=== PATIENT | female | born 1955 | race Caucasian/White ===

== ENCOUNTER → 2017-09-06 07:23 | Outpatient (CLI) | payer BC, SELFPAY ==
--- NOTE | 2017-09-06 07:31 | BI_ITS ---
MAMMOGRAPHY - BILATERAL SCREENING REASON FOR EXAM: Female, 62 years old. Routine annual screening examination. PERTINENT HISTORY: Sisters with breast cancer. TECHNIQUE: Digital bilateral breast gisella (3D mammographic acquisition) in the CC and MLO projections. 2-D mediolateral oblique (MLO) and craniocaudad (CC) views of both breasts were obtained. CAD: Full Field Digital Mammography with Computer Added Detection was performed. COMPARISON: Comparison is made with prior outside examination dated August 31, 2016. FINDINGS: Breast Composition: The breasts are heterogeneously dense, which may obscure small masses. There are no dominant masses or suspicious calcifications. No other significant abnormalities are identified. There has been no significant change since the prior study. BI/SCREENING MAMM (CAD), BILAT IMPRESSION: Stable bilateral screening mammogram. Yearly follow-up mammogram recommended. (A) ASSESSMENT CATEGORY: BIRADS Category 1: Negative. A letter regarding these results will be sent to the patient by the facility within 30 days. Approximately 10% of breast cancers are not detected by mammography. A normal mammogram should not delay biopsy of a clinically suspicious abnormality. [id number] Electronically Signed: Ritesh Long MD at 10:00 EDT Tel [phone], Service support ,
== END ==
PROVIDERS: Visit Provider Obstetrics & Gynecology
DX: Z12.31 Encounter for screening mammogram for malignant neoplasm of breast (principal)
CPT/HCPCS: 77063; 77067

== ENCOUNTER → 2018-09-14 | Outpatient (CLI) | payer BC, SELFPAY ==
--- NOTE | 2018-09-14 07:35 | BI_ITS ---
MAMMOGRAPHY - BILATERAL SCREENING REASON FOR EXAM: Female, 63 years old. Routine annual screening examination. PERTINENT HISTORY: Sisters with breast cancer. TECHNIQUE: Digital bilateral breast deirdre (3D mammographic acquisition) in the CC and MLO projections. 2-D mediolateral oblique (MLO) and craniocaudad (CC) views of both breasts were obtained. CAD: Full Field Digital Mammography with Computer Added Detection was performed. COMPARISON: Comparison is made with prior study dated September 06, 2017 and August 31, 2016. FINDINGS: Breast Composition: The breasts are heterogeneously dense, which may obscure small masses. There are no dominant masses or suspicious calcifications. Stable small bilateral axillary lymph nodes. No other significant abnormalities are identified. There has been no significant change since the prior study. BI/SCREEN MAMM (CAD) W/DEIRDRE BILAT IMPRESSION: Stable bilateral screening mammogram. Yearly follow-up mammogram recommended. (A) ASSESSMENT CATEGORY: BIRADS Category 2: Benign. A letter regarding these results will be sent to the patient by the facility within 30 days. Approximately 10% of breast cancers are not detected by mammography. A normal mammogram should not delay biopsy of a clinically suspicious abnormality. [id number] Electronically Signed: Ritesh Long, at 8:37 EDT , Service support ,
== END | disposition home or self-care (01) ==
LOC: OPBI 07:33
PROVIDERS: Referring Provider Obstetrics & Gynecology; Visit Provider Obstetrics & Gynecology
DX: Z12.31 Encounter for screening mammogram for malignant neoplasm of breast (principal)
CPT/HCPCS: 77063; 77067

== ENCOUNTER → 2019-06-06 09:36 | Outpatient (CLI) | payer BC, SELFPAY ==
[2019-06-06 09:35] VITALS: BMI 29.2
--- NOTE | 2019-06-06 09:37 | RAD_ITS ---
ACR Level 3 findings have been noted. An addendum which confirms receipt of the report will follow. STUDY: X-RAY - LEFT KNEE REASON FOR EXAM: Pain in the proximal left knee, no specific injury. TECHNIQUE: 4 view(s) of the knee. COMPARISON: None. FINDINGS: There is osteopenia. There is a lesion in the distal femoral diaphysis with central calcifications measuring 9.5 cm in length without demonstrated endosteal scalloping. Normal visualized proximal tibia and fibula. Normal proximal tibiofibular articulation. There is moderate joint space narrowing of the medial femorotibial compartment. Normal lateral femorotibial compartment. There is mild joint space narrowing of the patellofemoral articulation. There is a small joint effusion. RAD/Knee 4 or More Views IMPRESSION: Arthrosis of the medial femorotibial and patellofemoral compartments. Small joint effusion. 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 Electronically Signed: Benny Milner MD at 10:25 EST Tel , Service support ,
== END ==
PROVIDERS: Referring Provider Physician Assistant; Visit Provider Physician Assistant
DX: M25.562 Pain in left knee (principal)
CPT/HCPCS: 73564

== ENCOUNTER 2019-07-09 09:00 | Outpatient (RCR) | payer BC, SELFPAY ==
[2019-06-06 09:35] VITALS: BMI 29.2
--- NOTE | 2019-06-13 09:35 | HP.PTEVAL ---
Patient's Visit Information Arabella LEW is a 64 year old F referred to Physical Therapy by TUTU Champagne with a diagnosis of L5S1 RADICULOPATHY AND PATELLAR TENDONITIS. PATELLOFEMORAL PAIN/VMO WEAKNE. Date of Evaluation: 06/13/19 Physical Therapist: Emeli Alston PT, Cert MDT - Visit Plan Frequency: 2-3x /Week Duration: 4-6 Weeks Plan: AQUATIC THERAPY FOR PAIN RELEIF, POSTURE CORRECTION/STRENGTHENING, INSTRUCTION IN APPROPRIATE BODY MECHANICS AND ACTIVITY MODIFICATIONS. DLS STARTING WITH A NEUTRAL SPINE PROGRESSING ROM TOLERATED. ABDI LE ROM, STRETCHING AND STRENGTHENING. HEP INSTRUCTION. 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 Disability: NO. Present symptoms: INTERMITTENT LBP. PAIN TRAVELS DOWN LEFT BUTTOCK TO KNEE. NO RIGHT LE SX'S. LEFT KNEE PAIN. PAIN ALSO TRAVELS DOWN LEFT LEGT TO FOOT. LEFT FOOT GETS TENDER. NO ABDI LE NUMBNESS OR TINGLING. Present since: ABOUT 2 YEARS. Pain Scale: WORST 5/10, LEAST 0/10. Currently: 0/10. Commenced as a result of: AFTER COLONOSCOPY. Symptoms at onset: LEFT KNEE PAIN. Worse: STAIRS, STOOPING, SQUATTING, SOMETIMES WALKING. Better: SITTING, LYING DOWN. Disturbed sleep: NO. Previous history/Previous treatment: CHIROPRACTOR SINCE FEB 2019 - IT HELPED FOR A LITTLE BIT WITH BACK BUT NOT MUCH WITH THE KNEE. DR. WEAVER REFERRED HER TO [facility]TH[facility] ([facility]) AND [facility]TH[facility] REFERRED HER HERE TO PT. PRESCRIBED STROID THAT ENDS TODAY AND THAT HAS HELPED HER BACK AND KNEE PAIN. Coughing/sneezing/straining: NEGATIVE. Gait: INTERMITTENT LIMPING LLE. Difficulty initiating urinatin: NO. Accidents: NO. Unexplained weight loss: NO. Imaging: LUMBAR AND LEFT KNEE X-RAYS. BACK AND KNEE ARTHRITIS AND NO TEARS OR FRACTURES PER PATIENT REPORT. PMH: UNREMARKABLE. Recent major surgery: UNREMARKABLE - Objective Sitting/Standing Posture: POOR. INCREASED KYPHOSIS. Lordosis: REDUCED. Lateral shift: NO. Relevant shift: N/A. Active Correction of posture: INCREASES LEFT LBP. Other Observations: INDEP GAIT AND TRANSFERS. MILD LIMP ON LLE. Motor deficit: ABDI LE STRENGTH 5/5 WITH MMT'ING EXCEPT RIGHT HIP 4/5 AND LEFT HIP 4-/5. Sensory deficit: ABDI LE LIGHT TOUCH SENSATION INTACT AND SYMMETRICAL. ROM deficit: MILD ABDI HS TIGHTNESS AND MOD ABDI GASTROC SOLEUS TIGHTNESS. FULL ABDI KNEE EXTENSION AND ABDI KNEE FLEX TO 132 DEG BUT LEFT KNEE FEELS TIGHT WITH TESTING AT THE END OF THE AVAILABLE ROM. Reflexes: 2/3 ABDI LE'S. Dural Signs: POSITIVE LLE. Lumbar mvmt loss: flex - NIL. ext - MOD - INCRASES LEFT KNEE PAIN. R SG - MOD. L SG - MOD. Core strength: POOR. Palpation: NO ACUTE LUMBOSACRAL OR LEFT KNEE TENDERNESS. MILD LEFT KNEE SWELLING COMPARED TO RIGHT. TREATMENT: NEUROMUSCULAR REEDUCATION - RETRAINING OF MVMT AND POSTURE FOR SITTING, LYING AND STANDING ACTIVITIES. - Anticipated Interventions Patient/Client Instruction: Educate patient on: Condition, Plan of Care, Risk Factors, Benefits of Fitness Program For the Purpose of:: To improve self management Therapeutic Exercise to Include: Strength training, Body mechanics, Postural training, Flexibilty training, Neuromotor development, In an aquatic setting, Dynamic Lumbar Stabilization For the Purpose of:: To decrease pain, To improve muscle performance and motor function, To increase tolerance to activity/condition/position, To improve ability of physical actions for home/community/work/leisure, To improve gait and locomotor functions Thank you for the opportunity to evaluate your patient. For Medicare and Medicare HMO plans, please review the plan of care and approve it. It will need to be FAXED BACK to us at [phone] for Medicare purposes. For Medicare only, by signing this I certify the plan of care. Please let me know if there are questions or concerns regarding this plan of care. Physician Signature: Date:
--- NOTE | 2019-06-13 11:32 | HP.PTEVAL ---
Patient's Visit Information Arabella LEW is a 64 year old F referred to Physical Therapy by TUTU Champagne with a diagnosis of L5S1 RADICULOPATHY AND PATELLAR TENDONITIS. PATELLOFEMORAL PAIN/VMO WEAKNE. Date of Evaluation: 06/13/19 Physical Therapist: Emeli Alston PT, Cert MDT - Visit Plan Frequency: 2-3x /Week Duration: 4-6 Weeks Plan: AQUATIC THERAPY FOR PAIN RELEIF, POSTURE CORRECTION/STRENGTHENING, INSTRUCTION IN APPROPRIATE BODY MECHANICS AND ACTIVITY MODIFICATIONS. DLS STARTING WITH A NEUTRAL SPINE PROGRESSING ROM TOLERATED. ABDI LE ROM, STRETCHING AND STRENGTHENING (INCLUDING LEFT KNEE VMO). HEP INSTRUCTION. 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 Disability: NO. Present symptoms: INTERMITTENT LBP. PAIN TRAVELS DOWN LEFT BUTTOCK TO KNEE. NO RIGHT LE SX'S. LEFT KNEE PAIN. PAIN ALSO TRAVELS DOWN LEFT LEGT TO FOOT. LEFT FOOT GETS TENDER. NO ABDI LE NUMBNESS OR TINGLING. Present since: ABOUT 2 YEARS. Pain Scale: WORST 5/10, LEAST 0/10. Currently: 0/10. Commenced as a result of: AFTER COLONOSCOPY. Symptoms at onset: LEFT KNEE PAIN. Worse: STAIRS, STOOPING, SQUATTING, SOMETIMES WALKING. Better: SITTING, LYING DOWN. Disturbed sleep: NO. Previous history/Previous treatment: CHIROPRACTOR SINCE FEB 2019 - IT HELPED FOR A LITTLE BIT WITH BACK BUT NOT MUCH WITH THE KNEE. DR. WEAVER REFERRED HER TO ORTHO ([facility]) AND ORTHO REFERRED HER HERE TO PT. PRESCRIBED STROID THAT ENDS TODAY AND THAT HAS HELPED HER BACK AND KNEE PAIN. Coughing/sneezing/straining: NEGATIVE. Gait: INTERMITTENT LIMPING LLE. Difficulty initiating urinatin: NO. Accidents: NO. Unexplained weight loss: NO. Imaging: LUMBAR AND LEFT KNEE X-RAYS. BACK AND KNEE ARTHRITIS AND NO TEARS OR FRACTURES PER PATIENT REPORT. PMH: UNREMARKABLE. Recent major surgery: UNREMARKABLE - Objective Sitting/Standing Posture: POOR. INCREASED KYPHOSIS. Lordosis: REDUCED. Lateral shift: NO. Relevant shift: N/A. Active Correction of posture: INCREASES LEFT LBP. Other Observations: INDEP GAIT AND TRANSFERS. MILD LIMP ON LLE. Motor deficit: ABDI LE STRENGTH 5/5 WITH MMT'ING EXCEPT RIGHT HIP 4/5, LEFT HIP 4-/5 AND LEFT KNEE 4/5. Sensory deficit: ABDI LE LIGHT TOUCH SENSATION INTACT AND SYMMETRICAL. ROM deficit: MILD ABDI HS TIGHTNESS AND MOD ABDI GASTROC SOLEUS TIGHTNESS. FULL ABDI KNEE EXTENSION AND ABDI KNEE FLEX TO 132 DEG BUT LEFT KNEE FEELS TIGHT WITH TESTING AT THE END OF THE AVAILABLE ROM. Reflexes: 2/3 ABDI LE'S. Dural Signs: POSITIVE LLE. Lumbar mvmt loss: flex - NIL. ext - MOD - INCRASES LEFT KNEE PAIN. R SG - MOD. L SG - MOD. Core strength: POOR. Palpation: NO ACUTE LUMBOSACRAL OR LEFT KNEE TENDERNESS. MILD LEFT KNEE SWELLING COMPARED TO RIGHT. - Goals Goal 1:: DECREASE C/O LOW BACK AND LEFT LE SX'S. Goal Time Frame: 4-6 Weeks Goal 2:: IMPROVE WALKING, STAIR CLIMBING, LIFTING, STOOPING, STANDING, RECREATIONAL AND WORK FUNCTION. Goal Time Frame: 4-6 Weeks Goal 3:: INSTRUCT IN PROPHYLAXIS Goal Time Frame: 4-6 Weeks - Rehabilitation Potential Rehabilitation Potential: Fair - Anticipated Interventions Patient/Client Instruction: Educate patient on: Condition, Plan of Care, Risk Factors, Benefits of Fitness Program For the Purpose of:: To improve self management Therapeutic Exercise to Include: Strength training, Body mechanics, Postural training, Flexibilty training, Neuromotor development, In an aquatic setting, Dynamic Lumbar Stabilization For the Purpose of:: To decrease pain, To improve muscle performance and motor function, To increase tolerance to activity/condition/position, To improve ability of physical actions for home/community/work/leisure, To improve gait and locomotor functions Thank you for the opportunity to evaluate your patient. For Medicare and Medicare HMO plans, please review the plan of care and approve it. It will need to be FAXED BACK to us at [phone] for Medicare purposes. For Medicare only, by signing this I certify the plan of care. Please let me know if there are questions or concerns regarding this plan of care. Physician Signature: Date:
--- NOTE | 2020-01-02 15:12 | HP.PT.NRP ---
Arabella LEW was seen in my office for initial evaluation on 06/13/19. The following Plan of Care was established for this patient: Initial Frequency: 2-3x /Week Initial Duration: 4-6 Weeks Patient/Client Instruction: Educate patient on: Condition, Plan of Care, Risk Factors, Benefits of Fitness Program For the Purpose of:: To improve self management Therapeutic Exercise to Include: Strength training, Body mechanics, Postural training, Flexibilty training, Neuromotor development, In an aquatic setting, Dynamic Lumbar Stabilization For the Purpose of:: To decrease pain, To improve muscle performance and motor function, To increase tolerance to activity/condition/position, To improve ability of physical actions for home/community/work/leisure, To improve gait and locomotor functions This patient was last seen in our office . Pertinent comments regarding their Physical therapy will appear below: This patient has not returned to Physical Therapy and is appropriate to return to MD for further follow-up as needed. At this point I will be discontinuing this patient from physical therapy. I would be happy to see this patient again in the future if found appropriate by the physician. Thank you! Emeli Alston, PT, Cert MDT
== END 2019-07-09 19:00 | disposition home or self-care (01) ==
LOC: PT 09:00
PROVIDERS: Referring Provider Physician Assistant; Visit Provider Physician Assistant
DX: M54.17 Radiculopathy, lumbosacral region (principal); M76.50 Patellar tendinitis, unspecified knee; M25.569 Pain in unspecified knee
CPT/HCPCS: 97113; 97162

== ENCOUNTER → 2019-09-26 07:30 | Outpatient (CLI) | payer BC, SELFPAY ==
[2019-06-06 09:35] VITALS: BMI 29.2
--- NOTE | 2019-09-26 07:32 | BI_ITS ---
MAMMOGRAPHY - BILATERAL SCREENING REASON FOR EXAM: Female, 64 years old. Routine annual screening examination. PERTINENT HISTORY: Sisters with breast cancer. TECHNIQUE: Digital bilateral breast deirdre (3D mammographic acquisition) in the CC and MLO projections. 2-D mediolateral oblique (MLO) and craniocaudad (CC) views of both breasts were obtained. CAD: Full Field Digital Mammography with Computer Added Detection was performed. COMPARISON: Comparison is made with prior study dated September 14, 2018 and September 07, 2007. FINDINGS: Breast Composition: The breasts are heterogeneously dense, which may obscure small masses. There are no dominant masses or suspicious calcifications. Stable small benign-appearing bilateral axillary lymph nodes. No other significant abnormalities are identified. There has been no significant change since the prior study. BI/SCREEN MAMM (CAD) W/DEIRDRE BILAT IMPRESSION: Stable bilateral screening mammogram. Yearly follow-up mammogram recommended. (A) ASSESSMENT CATEGORY: BIRADS Category 2: Benign. A letter regarding these results will be sent to the patient by the facility within 30 days. Approximately 10% of breast cancers are not detected by mammography. A normal mammogram should not delay biopsy of a clinically suspicious abnormality. [id number] Electronically Signed: Ritesh Long, at 9:14 EDT , Service support ,
== END ==
PROVIDERS: Referring Provider Obstetrics & Gynecology; Visit Provider Obstetrics & Gynecology
DX: Z12.31 Encounter for screening mammogram for malignant neoplasm of breast (principal)
CPT/HCPCS: 77063; 77067

== ENCOUNTER 2020-07-30 09:57 | Outpatient (RCR) | payer BC, SELFPAY ==
[2019-06-06 09:35] VITALS: BMI 29.2
== END 2020-09-15 23:59 ==
LOC: IMMUN 09:57
PROVIDERS: Referring Provider Family Medicine; Visit Provider Family Medicine
DX: Z23 Encounter for immunization (principal)
CPT/HCPCS: 0001A; 0002A; 91300

== ENCOUNTER → 2020-09-28 07:14 | Outpatient (CLI) | payer BC, SELFPAY ==
[2019-06-06 09:35] VITALS: BMI 29.2
--- NOTE | 2020-09-28 07:16 | BI_ITS ---
MAMMOGRAPHY - BILATERAL SCREENING 3-D TOMOSYNTHESIS REASON FOR EXAM: Female, 65 years old. Screening. PERTINENT HISTORY: History of breast cancer in 2 sisters. TECHNIQUE: 2-D mammograms and 3-D Tomosynthesis of the breast (s) were performed. CAD was performed. COMPARISON: 09/26/2019, 09/14/2018. FINDINGS: The breast composition is Scattered benign calcifications are seen. No dense spiculated masses or suspicious microcalcifications are identified. No architectural distortion is identified. There is no skin thickening or retraction. There has been no significant change since the prior study. BI/SCRN MAMM (CAD)W/DEIRDRE BILAT IMPRESSION: No mammographic signs of malignancy. Routine yearly mammograms recommended. ASSESSMENT CATEGORY: BIRADS Category 2: Benign. A letter regarding these results will be sent to the patient by the facility within 30 days. FOLLOW UP RECOMMENDATION: Yearly follow up mammogram recommended. (A) Approximately 10% of breast cancers are not detected by mammography. A normal mammogram should not delay biopsy of a clinically suspicious abnormality. Electronically Signed: Michael Jordan MD at 10:47 EDT , Service support ,
== END ==
PROVIDERS: Referring Provider Obstetrics & Gynecology; Visit Provider Obstetrics & Gynecology
DX: Z12.31 Encounter for screening mammogram for malignant neoplasm of breast (principal)
CPT/HCPCS: 77063; 77067

== ENCOUNTER → 2021-10-21 | Outpatient (CLI) | payer BC, SELFPAY ==
--- NOTE | 2021-10-21 10:23 | BI_ITS ---
MAMMOGRAPHY - BILATERAL SCREENING REASON FOR EXAM: Female, 66 years old. Routine annual screening examination. PERTINENT HISTORY: Sisters with breast cancer. TECHNIQUE: Digital bilateral breast deirdre (3D mammographic acquisition) in the CC and MLO projections. 2-D mediolateral oblique (MLO) and craniocaudad (CC) views of both breasts were obtained. CAD: Full Field Digital Mammography with Computer Added Detection was performed. COMPARISON: Comparison is made with prior study dated 09/28/2020 and 09/26/2019. FINDINGS: Breast Composition: The breasts are heterogeneously dense, which may obscure small masses. There are no dominant masses or suspicious calcifications. No other significant abnormalities are identified. There has been no significant change since the prior study. BI/SCRN MAMM (CAD)W/DEIRDRE BILAT IMPRESSION: Stable bilateral screening mammogram. Yearly follow-up mammogram recommended. (A) ASSESSMENT CATEGORY: BIRADS Category 1: Negative. A letter regarding these results will be sent to the patient by the facility within 30 days. Approximately 10% of breast cancers are not detected by mammography. A normal mammogram should not delay biopsy of a clinically suspicious abnormality. [id number] Electronically Signed: Ritesh Long MD at 11:39 EDT ,
--- NOTE | 2021-10-21 10:27 | BD_ITS ---
STUDY: DUAL ENERGY X-RAY ABSORPTIOMETRY / DXA REASON FOR EXAM: Female, 66 years old. Postmenopausal TECHNIQUE: Bone Mineral Density (BMD) measurements of lumbar spine and bilateral hips were obtained. COMPARISON: None. FINDINGS: Lumbar Spine (L1-L4): g/cm2 (0.841) / T-score (-1.9) / Z-score (0.1) Findings are suggestive of osteopenia with a moderate fracture risk. Left Femur Total: g/cm2 (0.845) / T-score (-0.8) / Z-score (0.6) Left Femoral Neck: g/cm2 (0.695) / T-score (-1.4) / Z-score (0.3) Right Femur Total: g/cm2 (0.848) / T-score (-0.8) / Z-score (0.6) Right Femoral Neck: g/cm2 (0.691) / T-score (-1.4) / Z-score (0.2) BD/Dexa Bone Density Study IMPRESSION: The patient is considered osteopenic as outlined below according to World Portillo Organization (WHO) criteria with a moderate fracture risk. Reference Information: The T-score is the number of standard deviations above or below the standard which is normal for young adults at their peak bone mineral density. The World Health Organization (WHO) interprets the T-scores as follows: Above -1 Normal bone density Between -1 and -2.5 Osteopenia Equal to / or below -2.5 Osteoporosis As a practical clinical guideline, osteopenia may be graded as follows: Mild -1 through -1.5 Moderate -1.6 through -2.0 Severe -2.1 through -2.4 The Z-score is the number of standard deviations above or below age-matched controls. A Z-score of less than -1.5 would be considered abnormal. References: 1. NIH Osteoporosis and Related Bone Diseases www osteo.org 2. International Society for Clinical Densitometry www iscd.org 3. National Osteoporosis Foundation www nof.org Electronically Signed: Ritesh Long MD at 11:52 EDT ,
== END | disposition home or self-care (01) ==
LOC: OPBD 10:22
PROVIDERS: Referring Provider Obstetrics & Gynecology; Visit Provider Obstetrics & Gynecology
DX: Z78.0 Asymptomatic menopausal state (principal); Z12.31 Encounter for screening mammogram for malignant neoplasm of breast
CPT/HCPCS: 77063; 77067; 77080

== ENCOUNTER → 2022-10-13 | Outpatient (CLI) | payer OTHER, SELFPAY ==
[2022-10-13 10:18] LABS: AST(SGOT) 25 U/L (15-37); Alanine Aminotransfer ALT/SGPT 33 U/L (13-56); Albumin, Serum 3.9 g/dL (3.2-5.0); Alkaline Phosphatase 87 U/L (45-117); Anion Gap 7 (5-15); BUN 20 mg/dL (7-18); BUN/Creat Ratio 25.8 RATIO (10-20); Chloride 104 mmol/L (98-107); Cholesterol 244 mg/dL (200); Creatinine, Serum 0.78 mg/dL (0.55-1.02); EST Glomerular Filtration Rate 79 mL/min (>60); Est Glom Filt Rate - Afr Amer 95 mL/min (>60); Globulin 4.1 g/dL (2.2-4.2); Glucose 102 mg/dL (74-106); High Density Lipoprotein 82 mg/dL; Potassium 3.8 mmol/L (3.5-5.1); Sodium Level 139 mmol/L (136-145); Thyroid Stim Hormone (TSH) 3.01 uIU/mL (0.358-3.74); Triglycerides 141 mg/dL; Very Low Density Lipoprotein 28 mg/dL (5-40)
[2022-10-13 11:27] LABS: Hepatitis C Antibody Non-Reactive (Nonreactive); Vitamin D,25 Hydroxy 25.4 ng/mL
== END | disposition home or self-care (01) ==
PROVIDERS: Obstetrics & Gynecology; Referring Provider Obstetrics & Gynecology; Visit Provider Obstetrics & Gynecology
DX: Z00.00 Encounter for general adult medical examination without abnormal findings (principal); Z13.220 Encounter for screening for lipoid disorders; Z13.21 Encounter for screening for nutritional disorder
CPT/HCPCS: 36415; 80053; 80061; 82306; 84443; 86803

== ENCOUNTER → 2022-10-25 | Outpatient (CLI) | payer OTHER, SELFPAY ==
--- NOTE | 2022-10-25 08:10 | BI_ITS ---
MAMMOGRAPHY - BILATERAL SCREENING 3-D TOMOSYNTHESIS REASON FOR EXAM: Female, 67 years old. Routine screening PERTINENT HISTORY: Sisters with breast cancer.. TECHNIQUE: 2-D mammograms and 3-D Tomosynthesis of the breast (s) were performed. CAD was performed. COMPARISON: 09/28/2020 FINDINGS: The breast composition is heterogeneously dense that can obscure small breast masses. Scattered benign calcifications are seen. No dense spiculated masses or suspicious microcalcifications are identified. No architectural distortion is identified. There is no skin thickening or retraction. There has been no significant change since the prior study. BI/SCRN MAMM (CAD)W/DEIRDRE BILAT IMPRESSION: No mammographic signs of malignancy. Routine yearly mammograms recommended. ASSESSMENT CATEGORY: BIRADS Category 2: Benign. A letter regarding these results will be sent to the patient by the facility within 30 days. FOLLOW UP RECOMMENDATION: Yearly follow up mammogram recommended. (A) Approximately 10% of breast cancers are not detected by mammography. A normal mammogram should not delay biopsy of a clinically suspicious abnormality. Electronically Signed: Garrett Carmichael MD at 10:27 EDT ,
== END | disposition home or self-care (01) ==
LOC: OPBI 08:09
PROVIDERS: Referring Provider Obstetrics & Gynecology; Visit Provider Obstetrics & Gynecology
DX: Z12.31 Encounter for screening mammogram for malignant neoplasm of breast (principal)
CPT/HCPCS: 77063; 77067

== ENCOUNTER → 2023-11-15 | Outpatient (CLI) | payer OTHER, SELFPAY ==
--- NOTE | 2023-11-15 09:38 | BD_ITS ---
STUDY: DUAL ENERGY X-RAY ABSORPTIOMETRY / DXA REASON FOR EXAM: Female, 68 years old. Osteopenia TECHNIQUE: Bone Mineral Density (BMD) measurements of lumbar spine and bilateral hips were obtained. COMPARISON: Comparison is made with prior study dated October 21, 2021. FINDINGS: Lumbar Spine (L1-L4): g/cm2 (0.769) / T-score (-3.0) / Z-score (-0.8) Findings are suggestive of osteoporosis with a high fracture risk. Left Femur Total: g/cm2 (0.805) / T-score (-1.1) / Z-score (0.4) Left Femoral Neck: g/cm2 (0.655) / T-score (-1.7) / Z-score (0.0) Right Femur Total: g/cm2 (0.830) / T-score (-0.9) / Z-score (0.6) Right Femoral Neck: g/cm2 (0.674) / T-score (-1.6) / Z-score (0.2) The T-Scores on the most recent prior examination were: Lumbar Spine (L1-L4): There has been worsening of bone density since the previous examination. Left Femur Total: which represents a worsening of 4.72. Right Femur Total: which represents a worsening of 2.1%. BD/Dexa Bone Density Study IMPRESSION: The patient is considered osteoporotic as outlined below according to World [employer] Organization (WHO) criteria with a high fracture risk. There has been worsening of bone density since the previous examination. Reference Information: The T-score is the number of standard deviations above or below the standard which is normal for young adults at their peak bone mineral density. The World Health Organization (WHO) interprets the T-scores as follows: Above -1 Normal bone density Between -1 and -2.5 Osteopenia Equal to / or below -2.5 Osteoporosis As a practical clinical guideline, osteopenia may be graded as follows: Mild -1 through -1.5 Moderate -1.6 through -2.0 Severe -2.1 through -2.4 The Z-score is the number of standard deviations above or below age-matched controls. A Z-score of less than -1.5 would be considered abnormal. References: 1. NIH Osteoporosis and Related Bone Diseases www osteo.org 2. International Society for Clinical Densitometry www iscd.org 3. National Osteoporosis Foundation www nof.org Electronically Signed: Ritesh Long MD at 9:39 EDT ,
--- NOTE | 2023-11-15 09:38 | BI_ITS ---
MAMMOGRAPHY - BILATERAL SCREENING REASON FOR EXAM: Female, 68 years old. Routine annual screening examination. PERTINENT HISTORY: Sisters with breast cancer. TECHNIQUE: Digital bilateral breast deirdre (3D mammographic acquisition) in the CC and MLO projections. 2-D mediolateral oblique (MLO) and craniocaudad (CC) views of both breasts were obtained. CAD: Full Field Digital Mammography with Computer Added Detection was performed. COMPARISON: Comparison is made with prior study October 25, 2022 and October 21, 2021. FINDINGS: Breast Composition: The breasts are heterogeneously dense, which may obscure small masses. There are no dominant masses or suspicious calcifications. No other significant abnormalities are identified. There has been no significant change since the prior study. BI/SCRN MAMM (CAD)W/DEIRDRE BILAT IMPRESSION: Stable bilateral screening mammogram. Yearly follow-up mammogram recommended. (A) ASSESSMENT CATEGORY: BIRADS Category 1: Negative. A letter regarding these results will be sent to the patient by the facility within 30 days. Approximately 10% of breast cancers are not detected by mammography. A normal mammogram should not delay biopsy of a clinically suspicious abnormality. [id number] Electronically Signed: Ritesh Long MD at 12:15 EDT ,
[2023-11-15 10:08] LABS: Vitamin D,25 Hydroxy 31.6 ng/mL
[2023-11-15 10:13] LABS: Cholesterol 200 mg/dL (200); Glucose 112 mg/dL (74-106); High Density Lipoprotein 73 mg/dL; Thyroid Stim Hormone (TSH) 3.16 uIU/mL (0.358-3.74); Triglycerides 90 mg/dL; Very Low Density Lipoprotein 18 mg/dL (5-40)
== END | disposition home or self-care (01) ==
LOC: OPBD 09:38
PROVIDERS: Referring Provider Obstetrics & Gynecology; Visit Provider Obstetrics & Gynecology
DX: Z12.31 Encounter for screening mammogram for malignant neoplasm of breast (principal); M85.80 Other specified disorders of bone density and structure, unspecified site; Z13.21 Encounter for screening for nutritional disorder; Z13.29 Encounter for screening for other suspected endocrine disorder; Z13.1 Encounter for screening for diabetes mellitus; Z13.220 Encounter for screening for lipoid disorders
CPT/HCPCS: 36415; 77063; 77067; 77080; 80061; 82306; 82947; 84443

== ENCOUNTER → 2023-11-28 | Outpatient (CLI) | payer OTHER, SELFPAY ==
[2023-11-28 12:30] LABS: Anion Gap 4 (5-15); BUN 24 mg/dL (7-18); BUN/Creat Ratio 32.4 RATIO (10-20); Chloride 106 mmol/L (98-107); Creatinine, Serum 0.74 mg/dL (0.55-1.02); EST Glomerular Filtration Rate 82 mL/min (>60); Est Glom Filt Rate - Afr Amer 100 mL/min (>60); Glucose 100 mg/dL (74-106); Potassium 4.2 mmol/L (3.5-5.1); Sodium Level 139 mmol/L (136-145)
[2023-11-28 12:41] LABS: Absolute Lymphocyte Count 2.15 X10^3/uL (0.83-4.51); Absolute Neutrophil Count 2.6 X10^3/uL (2.0-7.7); Basophil# 0.07 X10^3/uL; Basophil% 1.2 % (0-1); Eosinophils% 5.3 % (0-5); Hematocrit 39.7 % (37-47); Hemoglobin 13.2 g/dL (12.0-15.0); Lymphocyte # 2.15 X10^3/ul (0.83-4.51); Lymphocyte % 37.9 % (19-41); Mean Corp Hgb Conc 33.2 g/dL (32-36); Mean Corpuscular Hgb 30.1 pg (27.0-32.0); Mean Corpuscular Volume 90.6 fL (81-99); Mean Platelet Vol. 10.6 fl (6.2-12.0); Monocyte# 0.59 X10^3/uL; Monocyte% 10.4 % (0-10); NRBC Flagged by Analyzer 0.4 % (0-5); Neutrophil # 2.55 X10^3/uL (2.7-7.7); Platelet Count 306 K/mm3 (150-450); RBC Distribution Width CV 13.4 % (11.6-14.6); RBC Distribution Width SD 44.2 fl (35.1-43.9); Red Blood Count 4.38 M/mm3 (4.2-5.4); White Blood Count 5.7 K/mm3 (4.4-11.0)
[2023-11-28 14:00] LABS: Hemoglobin A1c 5.6 % (3.8-5.6)
== END | disposition home or self-care (01) ==
LOC: BIMLAB 10:17
PROVIDERS: Visit Provider Nurse Practitioner
DX: Z00.00 Encounter for general adult medical examination without abnormal findings (principal)
CPT/HCPCS: 36415; 80048; 83036; 85025

== ENCOUNTER → 2024-11-18 | Outpatient (CLI) | payer BC, SELFPAY ==
--- NOTE | 2024-11-18 15:19 | BI_ITS ---
EXAM: SCRN MAMM (CAD)W/DEIRDRE BILAT DATE: 11/18/2024 CLINICAL HISTORY: F, Age 69 y/o , SCREENING FOR BREAST CANCER TECHNIQUE: SCRN MAMM (CAD)W/DEIRDRE BILAT COMPARISON: Prior exam(s) were compared FINDINGS: TISSUE DENSITY: The breasts are heterogeneously dense, which may obscure small masses. Bilateral Breast Mammographic Findings: No suspicious masses, calcifications or other abnormalities are identified. BI/SCRN MAMM (CAD)W/DEIRDRE BILAT IMPRESSION: no mammographic evidence of malignancy in either breast OVERALL FINAL ASSESSMENT BI-RADS 1: NEGATIVE. RECOMMENDATION: Routine annual follow-up in 1 Year A letter with findings and recommendations will be mailed to the patient. Reading Location: [id number]
== END | disposition home or self-care (01) ==
LOC: OPBI 15:19
PROVIDERS: PCP Nurse Practitioner Family; Referring Provider Obstetrics & Gynecology; Visit Provider Obstetrics & Gynecology
DX: Z12.31 Encounter for screening mammogram for malignant neoplasm of breast (principal)
CPT/HCPCS: 77063; 77067